=== PATIENT | male | born 1950 | race Caucasian/White ===

== ENCOUNTER → 2017-05-15 | Outpatient (CLI) | payer OTHER, MEDICAID ==
[~2017-05-15] MED LIST: ASPI325T4 PO; CLOP75TA28 PO; IOHEXOL 350 MG/ML 100ML IJ ONE; NIC21P TD; PANT40TA2 PO
[2017-05-15 10:15] VITALS: BP 121/70
[2017-05-15 10:50] VITALS: BP 134/75
== END | disposition home or self-care (01) ==
LOC: Rad HDHVI 09:50
PROVIDERS: ATTEND Internal Medicine Cardiovascular Disease
DX: I10 Essential (primary) hypertension (principal); E78.5 Hyperlipidemia, unspecified; G47.00 Insomnia, unspecified; F19.980 Other psychoactive substance use, unspecified with psychoactive substance-induced anxiety disorder; F17.200 Nicotine dependence, unspecified, uncomplicated; Z95.0 Presence of cardiac pacemaker
CPT/HCPCS: 71275; 82565; 93005; G0463; Q9967

== ENCOUNTER → 2018-02-05 | Outpatient (CLI) | payer OTHER, MEDICAID ==
[~2018-02-05] MED LIST changes: -IOHEXOL 350 MG/ML 100ML IJ ONE
== END | disposition home or self-care (01) ==
LOC: Rad HDHVI 12:59
PROVIDERS: ATTEND Internal Medicine Cardiovascular Disease
DX: I20.9 Angina pectoris, unspecified (principal); I10 Essential (primary) hypertension; E78.5 Hyperlipidemia, unspecified; F17.200 Nicotine dependence, unspecified, uncomplicated; E11.9 Type 2 diabetes mellitus without complications; Z95.0 Presence of cardiac pacemaker; Z79.01 Long term (current) use of anticoagulants
CPT/HCPCS: 93306